=== PATIENT | male | born 1980 | race Caucasian/White ===

== ENCOUNTER 2018-12-18 13:11 | Day surgery (SDC) | payer OTHER ==
[2018-12-18] VITALS (17 sets, daily range): BP systolic 113–133; BP diastolic 74–94; PULSE 58–84; RESP 8–27; Ht 165.1 cm; Wt 75.8 kg
[~2018-12-18] VITALS: Ht 165.1 cm; Wt 75.8 kg
[~2018-12-18 13:11] MED LIST: CEFAZOLIN 2 GM/50 ML (PMX) 50 ML IVPB ONE; DESFLURANE 15 MIN ONE; SOD CHLORIDE 0.9% 1,000 ML IV SCH
--- NOTE | 2018-12-18 15:51 | PREAC ---
Date/Time of Note Date/Time of Note DATE: 12/18/18 TIME: 15:50 Anesthesia Eval and Record Evaluation Time Pre-Procedure Interview DATE: 12/18/18 TIME: 15:50 Age 38 Sex male NPO: 8 hrs Preoperative diagnosis VENTRAL HERNIA Planned procedure REPAIR OF VENTAL HERNIA WITH MESH Past Medical History Past Medical History: Includes Pulm: Asthma Surgery & Anesthesia Issues No known issue Meds Anticoagulation: No Beta Armond within 24 hr: No Reason Beta Armond not given: Pt. not on B-Armond No Active Prescriptions or Reported Meds Current Medications Sodium Chloride 1,000 ml @ 75 mls/hr [id number] IV ; Start 12/18/18 at 06:00; Sto p 12/18/18 at 18:00 Meds reviewed: Yes Allergies Coded Allergies: No Known Allergy (Unverified , 12/18/18) Allergies Reviewed: Yes Labs/Studies Labs Reviewed: Reviewed by anesthesiologist Result Diagram: 12/18/18 1505 12/18/18 1505 Laboratory Tests 12/18/18 15:05 test: N/A Studies: ECG (N/A), CXR (N/A) Pre-procedure Exam Last vitals Vital Signs Date Temp Pulse Resp B/P (MAP) Pulse Ox O2 O2 Flow FiO2 Time Delivery Rate 12/18/18 97.9 76 16 127/91 98 Room Air 14:53 (103) Airway: Adequate mouth opening Mallampati: Mallampati I Teeth: Normal Lung: Normal Heart: Normal ASA Physical Status ASA physical status: 2 Emergency: None Planned Anesthetic General/MAC: ETT Nerve block: TAP (bilateral) Planned Pain Management Single shot nerve block, Parenteral pain med Pre-operative Attestations Prior to commencing anesthesia and surgery, the patient was re-evaluated, there was verification of: *The patient's identity *The results of appropriate recent lab work and preoperative vital signs *The above evaluation not changing prior to induction *Anesthetic plan, risk benefits, alternative and complications discussed with patient/family; questions answered; patient/family understands, accepts and w ishes to proceed. RACHID ALEXIS MD December 18, 2018 15:51
[2018-12-18] MEDS ORDERED: BUPIVACAINE 0.25%/EPI (SDV) 30 ML INJ ONE (15:53)
[2018-12-18] MEDS ORDERED: PROPOFOL 20 ML ONE (15:58)
[2018-12-18] MEDS ORDERED: ROPIVACAINE 0.5 % 30 ML VIAL ONE (15:58)
[2018-12-18] MEDS ORDERED: ONDANSETRON 4 MG INJ ONE (15:58)
[2018-12-18] MEDS ORDERED: METOCLOPRAMIDE 10 MG INJ ONE (15:58)
[2018-12-18] MEDS ORDERED: MIDAZOLAM 1 MG/ML 2 ML INJ ONE (15:58)
[2018-12-18] MEDS ORDERED: DIPHENHYDRAMINE 50 MG INJ IV PRN (16:00)
[2018-12-18] MEDS ORDERED: FENTAnyl 50 MCG/ML VIAL IV PRN ×3 (16:00)
[2018-12-18] MEDS ORDERED: ONDANSETRON 4 MG INJ IV PRN ×2 (16:00→17:30)
[2018-12-18] MEDS ORDERED: HYDROmorphONE 1 MG/5 ML IV SYRINGE IV PRN ×3 (16:00)
[2018-12-18] MEDS ORDERED: OXYCODONE/ACETAMINOPHEN (5/325) TAB PO PRN ×2 (16:00)
[2018-12-18] MEDS ORDERED: KETOROLAC 30 MG INJ IV PRN ×2 (16:00→17:30)
[2018-12-18] MEDS ORDERED: MEPERIDINE 25 MG INJ IV PRN (16:00)
[2018-12-18] MEDS ORDERED: GLYCOPYRROLATE 0.4 MG INJ ONE (16:28)
[2018-12-18] MEDS ORDERED: NEOSTIGMINE 3 MG/3 ML SYRINGE ONE (16:28)
[2018-12-18] MEDS ORDERED: ROCURONIUM 50 MG INJ ONE (16:28)
[2018-12-18] MEDS ORDERED: CEFAZOLIN 1 GM INJ ONE (16:28)
[2018-12-18] MEDS ORDERED: FENTAnyl 50 MCG/ML VIAL ONE (16:37)
[2018-12-18] MEDS ORDERED: KETOROLAC 30 MG INJ ONE (17:20)
[2018-12-18] MEDS ORDERED: IBUPROFEN 600 MG TAB PO PRN (17:30)
[2018-12-18] MEDS ORDERED: HYDROCODONE/APAP (5/325) TAB PO PRN ×2 (17:30)
[2018-12-18] MEDS ORDERED: morphine 2 MG INJ IV PRN (17:30)
--- NOTE | 2018-12-18 17:30 | OPR ---
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 He reported increasing discomfort. He had clinical signs and symptoms of a ventral hernia which was chronically incarcerated with fat. This was confirmed with a CT scan. He was scheduled for elective repair to prevent sequelae of hernia disease which include, but are not limited to: Incarceration and strangulation. All risks and benefits of the procedure including, but not limited to: Wound infection, excessive bleeding, postoperative seroma/hematoma formation, injury to intra-abdominal organs, hernia recurrence, chronic pain, etc. were all explained to the patient in full detail. Patient fully understood and wished to proceed with the procedure. Informed consent was obtained. Procedure Description Patient was brought to the operating room and placed supine on the operating table. Bilateral sequential compression devices were placed on both lower extremities. A dose of broad-spectrum perioperative intravenous antibiotics was given. After the induction of smooth general anesthesia the patient's abdomen was prepped and draped in standard surgical fashion. The area of the patient's hernia which was located approximately midway between the xiphoid process and the umbilicus in the epigastrium was preoperatively marked and confirmed with the patient in the holding area. After performance of the surgical timeout a supraumbilical midline incision was then made over the hernia using a 15 blade scalpel. It was carried down through the skin and the dermis. In the subcutaneous tissues, the chronically incarcerated fat-containing hernia was identified. It was circumferentially dissected free of surrounding tissues down to the level of the anterior rectus fascia. Diastases of the rectus abdominis muscle was noted. The hernia contents were transected and passed off the field as specimen. The hernia defect itself measured approximately 1 cm. A small Ethicon proceed ventral hernia patch was then used to repair the hernia defect. Its tails were secured to the fascia using interrupted 2-0 PDS sutures. The mesh was soaked in antibiotic irrigation prior to insertion into the field. With the repair complete it was inspected and noted to be tension-free and hemostatic. The wound cavity was then irrigated with more antibiotic irrigation. The fascia was then reapproximated over the mesh using a 0 PDS sutu re in [id number] fashion. Incision was then closed in layers using interrupted 3-0 Vicryl sutures for the dermal layer. The skin was reapproximated using a running 4-0 Monocryl suture in subcuticular fashion. Further local anesthesia was applied around the skin of the incision site. Incision was cleaned and Dermabond was applied as well as an abdominal binder. The patient was awoken from anesthesia and transported to the recovery room in stable condition. All counts were correct at the end of the case 2. DONATO QUIGLEY MD December 18, 2018 17:30
--- NOTE | 2018-12-19 08:39 | PAC ---
Date/Time of Note Date/Time of Note DATE: 12/19/18 TIME: 08:39 Post-Anesthesia Notes Post-Anesthesia Note Last documented vital signs Vital Signs Date Temp Pulse Resp B/P (MAP) Pulse Ox O2 O2 Flow FiO2 Time Delivery Rate 12/18/18 99.0 64 13 133/94 97 Room Air 18:52 (107) 12/18/18 3.0 18:12 12/18/18 99.7 17:46 Activity: WNL Respiratory function: WNL Cardiovascular function: WNL Mental status: Baseline Pain reasonably controlled: Yes Hydration appropriate: Yes Nausea/Vomiting absent: No RACHID ALEXIS MD December 19, 2018 08:39
== END 2018-12-18 19:06 | disposition home or self-care (01) ==
LOC: SDS 13:11
PROVIDERS: ATTEND Surgery
DX: K43.6 Other and unspecified ventral hernia with obstruction, without gangrene (principal); J45.909 Unspecified asthma, uncomplicated
CPT/HCPCS: 49561; 49568; 80053; 85025; 85610; 85730; 88302; C1781; J0690; J1170; J1885; J2250; J2405; J2710; J2765; J2795; J3010; Z7512; Z7610